=== PATIENT | female | born 1975 | race Caucasian/White ===

== ENCOUNTER → 2020-05-21 | Day surgery (SDC) | payer OTHER ==
[~2020-05-21] MED LIST: ALLEGRA ALLERG180 MG PO; LAXATIVE25 MG PO; LIPITOR40 MG PO; NOVOLOG VI100 UNIT/1 SC; OMEPRAZOLE40 MG PO; OZEMPIC0.25 MG/0. IJ; STOOL SOFTENER100 MG PO; SYNTHROID125 MCG PO; TYLENOL #31 EACH PO; VITAMIN D350 MC4 PO; ZESTRIL2.5 MG PO
[2020-05-21 15:41] LABS: BUN/CREAT RATIO (CALC) 17.1 RATIO; CREATININE 0.7 mg/dL (0.51-0.95); POTASSIUM 4.4 mmol/L (3.5-5.1)
== END | disposition home or self-care (01) ==
LOC: FAS 09:38
PROVIDERS: Anesthesiology
DX: M65.312 Trigger thumb, left thumb (principal); E11.9 Type 2 diabetes mellitus without complications; E28.2 Polycystic ovarian syndrome; E78.00 Pure hypercholesterolemia, unspecified; E03.9 Hypothyroidism, unspecified; K21.9 Gastro-esophageal reflux disease without esophagitis; Z88.1 Allergy status to other antibiotic agents; Z88.5 Allergy status to narcotic agent; Z88.8 Allergy status to other drugs, medicaments and biological substances; Z79.4 Long term (current) use of insulin; Z79.899 Other long term (current) drug therapy
CPT/HCPCS: 36415; 80048; 93005; J2250; J3010; J7120